=== PATIENT | female | born 1985 | race African-American/Black ===

== ENCOUNTER 2019-07-04 09:37 | Emergency (ER) | payer MEDICAID ==
[~2019-07-04] VITALS: Ht 170.2 cm; Wt 148.8 kg
[2019-07-04] MEDS ORDERED: AMLODIPINE-ATO1 EAC1 ORAL (09:50)
[2019-07-04] MEDS ORDERED: METFORMIN HCL1000 M1 ORAL (09:50)
[2019-07-04 09:52] VITALS: BP 134/84
--- NOTE | 2019-07-04 09:55 | NUR ---
ED Nurse Note: pt walked in from home due to pain on Rt hip area 12/26 after she tripped by her son's toy and fell last night. pt aao x4 and ambulatory but limping. calm but grimacing for pain. cooperative. pt able to provide urine sample. no cardiac or pulmonary distress noted at this time. vss as documented.
--- NOTE | 2019-07-04 10:05 | NUR ---
ED Nurse Note: ERMD at bedside.
[2019-07-04] MEDS ORDERED: Acetaminophen 500mg (ES) tab ORAL ONE (10:15)
[2019-07-04] MEDS ORDERED: Ketorolac 60mg Inj IM ONE (10:15)
--- NOTE | 2019-07-04 10:30 | Emergency Room Report ---
History of Present Illness General Chief Complaint: Multiple Trauma/Fall Source: Patient Present Illness HPI This patient states that yesterday she tripped and fell over her son's toys. She states she has a history of sciatica. She states she has had severe pain with any movement. She denies weakness. She denies tingling or numbness. She denies head injury. She states her pain is primarily on the right side of her body. She denies loss of bowel or bladder control. She denies chest pain or shortness of breath. She denies recent illness. She denies cough or congestion. She has no other complaints. Allergies: Coded Allergies: No Known Allergies (Unverified , 07/04/19) COVID-19 Screening Contact w/high risk pt: No Recent Travel to affected area: No Experienced COVID-19 symptoms?: No Patient History Past Medical History: see triage record, DM, HTN, asthma Social History: Denies: smoking, alcohol use, drug use Last Menstrual Period: June 06, 2019 Now: No : 2 Para: 1 Reviewed Nursing Documentation: PMH: Agreed; PSxH: Agreed Nursing Documentation-PMH Past Medical History: No History, Except For Hx Cardiac Problems: Yes Hx Hypertension: Yes Hx Asthma: Yes Hx Diabetes: Yes Review of Systems All Other Systems: negative except mentioned in HPI Physical Exam Vital Signs Date Time Temp Pulse Resp B/P (MAP) Pulse Ox O2 Delivery O2 Flow Rate FiO2 07/04/19 09:45 98.2 102 18 134/84 (101) 97 Room Air Sp02 EP Interpretation: reviewed, normal General Appearance: no apparent distress, alert, GCS 15, non-toxic, obese - Morbid obesity Head: normocephalic, atraumatic Eyes: bilateral eye normal inspection ENT: hearing grossly normal, normal pharynx, no angioedema, normal voice Neck: normal inspection, full range of motion Respiratory: no respiratory distress, no retraction, no accessory muscle use, speaking full sentences Cardiovascular #1: no edema Gastrointestinal: normal inspection, non-distended Rectal: deferred Musculoskeletal: normal range of motion, gait/station normal, tender - TTP over the R. L-spine paraspinal muscle diffusely. +pain w/ ROM. Neurologic: alert, motor strength/tone normal, oriented x3, sensory intact, responsive, speech normal Psychiatric: judgement/insight normal, memory normal, mood/affect normal, no suicidal/homicidal ideation Skin: no rash, normal color Medical Decision Making Diagnostic Impression: Primary Impression: Fall Additional Impression: Low back strain ER Course This patient has a clinical presentation consistent with Low back strain. There are no red flags on physical exam. The patient denies any concerning features such as trauma, fevers, night sweats, history of malignancy, pain worse at night, IV drug abuse, urinary/fecal incontinence or retention, focal weakness or change in sensation, or refractory pain. Given these pertinent negatives in the history and physical exam an emergent cause of the back pain such as epidural abscess, metastasis to bone, cauda equina syndrome, and fracture is less likely. I also doubt emergent cardiovascular cause of back pain such as aortic dissection a ruptured abdominal aortic aneurysm given patient with equal pulses in all 4 extremities with no diastolic murmur or pulsatile abdominal mass. The patient was counseled that, though unlikely, the possibility of an emergent cause of back pain may still be present and that the patient should return immediately if symptoms persist or worsen. The symptoms are reproducible with movement. Patient had a benign evaluation and neurologic examination. Lumbar spine x-ray was negative for acute findings. No emergency etiology was identified. Laboratory Tests Test 07/04/19 09:50 Urine HCG, Qualitative Negative (NEGATIVE) Other X-Ray Diagnostic Results Other X-Ray Diagnostic Results : X-Ray ordered: L-spine xray # of Views/Limited Vs Complete: Complete Indication: Pain EP Interpretation: Yes Interpretation: no dislocation, no fractures Impression: No acute disease Electronically Signed by: Miriam Dahl DO Last Vital Signs Date Time Temp Pulse Resp B/P (MAP) Pulse Ox O2 Delivery O2 Flow Rate FiO2 07/04/19 09:52 102 18 Room Air 07/04/19 09:52 98.2 134/84 97 Status: improved Disposition: HOME, SELF-CARE Condition: Improved Scripts Lidocaine Patch* (Lidoderm Patch*) 1 Each Adh..patch 1 PATCH TOPIC DAILY, #7 PATCH 0 Refills Patch(es) may remain in place for up to 12 hours in any 24-hour period. Prov: Miriam Dahl DO 07/04/19 Cyclobenzaprine Hcl* (FLEXERIL*) 10 Mg Tablet 10 MG ORAL TID PRN for Muscle Spasm, #20 TAB Prov: Miriam Dahl DO 07/04/19 Ibuprofen* (MOTRIN*) 800 Mg Tablet 800 MG ORAL Q6H, #30 TAB 0 Refills Prov: Miriam Dahl DO 07/04/19 Referrals: NOT CHOSEN SHEY/,REFERRING (PCP) Miriam Dahl DO Jul 04, 2019 10:30
[2019-07-04] MEDS ORDERED: NORCO 5-325 TA1 EAC1 ORAL ×3 (10:32→12:46)
[2019-07-04] MEDS ORDERED: CYCLOBENZAPRINE10 MG ORAL (10:32)
[2019-07-04] MEDS ORDERED: LIDODERM700 M1 TOPIC (10:32)
[2019-07-04] MEDS ORDERED: IBUPROFEN800 MG ORAL (10:32)
--- NOTE | 2019-07-04 11:50 | NUR ---
ED Nurse Note: test negative. x-ray technitian informed.
--- NOTE | 2019-07-04 12:10 | NUR ---
ED Nurse Note: pt went to x-ray with techitian.
[2019-07-04 12:55] VITALS: BP 126/87
--- NOTE | 2019-07-04 12:57 | NUR ---
ED Nurse Note: Pt cleared by health care Provider for discharge. DC instructions/prescription was given and explained to pt and verbalized understanding of teachings. All medical deviecs such as ID band removed. Pt is AAO x4, ambulatory and left with all personal belongings.
--- NOTE | 2019-07-04 13:34 | Diagnostic Imaging Report ---
Indication: Trauma, pain Technique: 3 views of the lumbar spine Comparison: None Findings: Vertebral body heights are preserved. There is degenerative disc narrowing at L5-S1. The remaining disc spaces are preserved. No acute fractures. No dislocations. There is incidental finding of an intrauterine device in the expected location.. Impression: No acute bony trauma Degenerative changes as described Incidental finding of intrauterine device
== END 2019-07-04 12:57 | disposition home or self-care (01) ==
LOC: EMR 09:57
DX: S39.012A Strain of muscle, fascia and tendon of lower back, initial encounter (principal); W01.0XXA Fall on same level from slipping, tripping and stumbling without subsequent striking against object, initial encounter; Y92.9 Unspecified place or not applicable; E11.9 Type 2 diabetes mellitus without complications; I10 Essential (primary) hypertension; E66.01 Morbid (severe) obesity due to excess calories; Z68.43 Body mass index [BMI] 50.0-59.9, adult
CPT/HCPCS: 72020; 81025; 96372; Z7502; 99283